=== PATIENT | male | born 1955 | race Caucasian/White ===

== ENCOUNTER 2019-03-26 09:24 | Day surgery (SDC) | payer BC, OTHER ==
[2019-03-26] MEDS ORDERED: Midazolam 1 MG/ML 2 ML SDV IV ONE (09:25)
[2019-03-26] MEDS ORDERED: fentaNYL 100 MCG/2 ML SDV IV ONE (09:25)
[2019-03-26] MEDS ORDERED: Sodium Chloride 0.9% 10 ML Syringe FLUSH PRN (09:30)
[2019-03-26 12:00] VITALS: BP 137/83; PULSE 77
--- NOTE | 2019-03-27 09:29 | OR ---
DATE OF OPERATION: 03/26/2019 SURGEON: Agata Lemus MD PREOPERATIVE DIAGNOSIS: Visually significant cataract, right eye. POSTOPERATIVE DIAGNOSIS: Visually significant cataract, right eye. PROCEDURES PERFORMED: Phacoemulsification with intraocular lens placement, right eye. ASSISTANTS: None. ANESTHESIA: Local with sedation. COMPLICATIONS: None. BLOOD LOSS: None. IMPLANTS: A 23.0 diopter lens implanted. CDE: 4.38. DESCRIPTION OF PROCEDURE: After risks and benefits were reviewed with the patient, consent was obtained in the preoperative area, and the operative eye was marked with a surgical pen. In the preoperative area, a pledget was used to dilate the pupil consisting of a mixture of phenylephrine 10%, cyclopentolate 2%, moxifloxacin 0.5%, and bupivacaine 0.75%. The patient was taken to the operating room, where a time-out was performed, and the patient was placed under monitored anesthesia care. Topical tetracaine was used for anesthesia. The operative eye was prepped and draped for ophthalmic surgery, and the microscope was brought into position and focussed. A paracentesis incision was made, followed by injection of preservative-free 1% lidocaine into the anterior chamber, followed by injection of Viscoat into the anterior chamber. A microkeratome blade was used to make a corneal limbal incision temporarily. A cystotome was used to make the beginning of the capsulorrhexis, which was carried around 360 degrees in a curvilinear fashion using Utrata forceps. A Camarena cannula with BSS was used to hydrodissect and hydrodelineate the nucleus. The nucleus was removed in a divide and conquer manner using phacoemulsification. Irrigation and aspiration were used to remove the remaining cortical material. Provisc was used to inflate the capsular bag, and a pre-loaded 23.0 diopter lens, serial number [id number] was injected into the capsular bag. A Sinskey hook was used to position and center the lens. Next, irrigation and aspiration was used to remove any remaining viscoelastic and cortical material from the anterior chamber. BSS on a cannula was used to inflate the anterior chamber and hydrate the wound. The wound was checked and found to be watertight. 1 mg of Moxifloxacin was injected into the anterior chamber. Drapes were removed and the eye was cleaned. A drop of brimonidine 0.15% and a drop of TobraDex was placed. The eye was shielded, and the patient was taken to the recovery room in stable condition. /[id number] [place] CC: SAPPHIRE CRAMER PA-C
== END 2019-03-26 12:04 | disposition home or self-care (01) ==
LOC: FB.SDS 09:24
PROVIDERS: ATTEND Ophthalmology
DX: H26.9 Unspecified cataract (principal)
CPT/HCPCS: 66984; J2250; J3010; V2632

== ENCOUNTER 2019-04-08 11:08 | Day surgery (SDC) | payer BC, OTHER ==
[2019-04-08] MEDS ORDERED: fentaNYL 100 MCG/2 ML SDV IV ONE (11:09)
[2019-04-08] MEDS ORDERED: Midazolam 1 MG/ML 2 ML SDV IV ONE (11:09)
[2019-04-08] MEDS ORDERED: Lactated Ringers 1,000 ML IV PRN (11:30)
[2019-04-08] MEDS ORDERED: Sodium Chloride 0.9% 10 ML Syringe FLUSH PRN (11:30)
[2019-04-08 16:23] VITALS: BP 140/90; PULSE 79
--- NOTE | 2019-04-09 08:31 | OR ---
DATE OF OPERATION: 04/08/2019 SURGEON: Agata Lemus MD PREOPERATIVE DIAGNOSIS: Visually significant cataract, left eye. POSTOPERATIVE DIAGNOSIS: Visually significant cataract, left eye. PROCEDURES PERFORMED: Phacoemulsification with intraocular lens placement, left eye. ASSISTANTS: None. ANESTHESIA: Local with sedation. COMPLICATIONS: None. BLOOD LOSS: None. IMPLANTS: Fran [id number], 23.0 diopter lens implanted. CDE: 4.64. DESCRIPTION OF PROCEDURE: After risks and benefits were reviewed with the patient, consent was obtained in the preoperative area, and the operative eye was marked with a surgical pen. In the preoperative area, a pledget was used to dilate the pupil consisting of a mixture of phenylephrine 10%, cyclopentolate 2%, moxifloxacin 0.5%, and bupivacaine 0.75%. The patient was taken to the operating room, where a time-out was performed, and the patient was placed under monitored anesthesia care. Topical tetracaine was used for anesthesia. The operative eye was prepped and draped for ophthalmic surgery, and the microscope was brought into position and focussed. A paracentesis incision was made, followed by injection of preservative-free 1% lidocaine into the anterior chamber, followed by injection of Viscoat into the anterior chamber. A microkeratome blade was used to make a corneal limbal incision temporarily. A cystotome was used to make the beginning of the capsulorrhexis, which was carried around 360 degrees in a curvilinear fashion using Utrata forceps. A Camarena cannula with BSS was used to hydrodissect and hydrodelineate the nucleus. The nucleus was removed in a divide and conquer manner using phacoemulsification. Irrigation and aspiration were used to remove the remaining cortical material. Provisc was used to inflate the capsular bag, and a pre-loaded Fran AU00T0, 23.0 diopter lens, serial number [id number] was injected into the capsular bag. A Sinskey hook was used to position and center the lens. Next, irrigation and aspiration was used to remove any remaining viscoelastic and cortical material from the anterior chamber. BSS on a cannula was used to inflate the anterior chamber and hydrate the wound. The wound was checked and found to be watertight. 1 mg of Moxifloxacin was injected into the anterior chamber. Drapes were removed and the eye was cleaned. A drop of brimonidine 0.15% and a drop of TobraDex was placed. The eye was shielded, and the patient was taken to the recovery room in stable condition. /[id number] [place]/[facility] cc: EARNEST Sanchez
== END 2019-04-08 13:35 | disposition home or self-care (01) ==
LOC: FB.SDS 11:08
PROVIDERS: ATTEND Ophthalmology
DX: H25.812 Combined forms of age-related cataract, left eye (principal); H02.886 Meibomian gland dysfunction of left eye, unspecified eyelid; H02.883 Meibomian gland dysfunction of right eye, unspecified eyelid; H52.203 Unspecified astigmatism, bilateral; H52.13 Myopia, bilateral; J44.9 Chronic obstructive pulmonary disease, unspecified; F17.210 Nicotine dependence, cigarettes, uncomplicated; Z98.41 Cataract extraction status, right eye; Z96.1 Presence of intraocular lens; Z91.09 Other allergy status, other than to drugs and biological substances
CPT/HCPCS: 66984; J2250; J3010; J7120; V2632

== ENCOUNTER 2023-04-20 13:43 | Emergency (ER) | payer MEDICARE ==
[2023-04-20] MEDS ORDERED: Sodium Chloride 0.9% 10 ML Syringe FLUSH PRN (13:58)
[2023-04-20] MEDS ORDERED: Sodium Chloride 0.9% 1,000 ML IV SCH (14:00)
[2023-04-20 16:58] VITALS: BP 148/86; PULSE 91
== END 2023-04-20 16:00 | disposition home or self-care (01) ==
LOC: FB.ED 13:43
DX: E87.1 Hypo-osmolality and hyponatremia (principal); M79.604 Pain in right leg; J44.1 Chronic obstructive pulmonary disease with (acute) exacerbation; F17.210 Nicotine dependence, cigarettes, uncomplicated; Z91.09 Other allergy status, other than to drugs and biological substances; Z79.01 Long term (current) use of anticoagulants; Z79.51 Long term (current) use of inhaled steroids
CPT/HCPCS: 36415; 85379; 99283; J3490; J7030